=== PATIENT | male | born 1970 | race Caucasian/White ===

== ENCOUNTER 2018-08-10 20:37 | Emergency (ER) | payer MEDICAID ==
[~2018-08-10] VITALS: Ht 172.7 cm; Wt 90.9 kg
[2018-08-10] MEDS ORDERED: ASPIRIN 325 MG EC TABLET PO ONE (21:45)
[2018-08-10 22:01] LABS: BASOPHILS % (AUTO) 1.2 % (0.0-2.0); EOSINOPHILS % (AUTO) 3.3 % (1.0-6.0); HEMATOCRIT 43.2 % (41-53); HEMOGLOBIN 15.1 g/dL (13.5-17.5); LYMPHOCYTES # (AUTO) 1.3 K/uL (1.0-4.8); LYMPHOCYTES % (AUTO) 25.7 % (22.0-44.0); MEAN CORPUSCULAR HEMOGLOBIN 33.1 pg (26.0-34.0); MEAN CORPUSCULAR HGB CONC 34.9 G/dL (31.0-37.0); MEAN CORPUSCULAR VOLUME 95 fL (80-100); MONOCYTES # (AUTO) 0.8 K/uL (0.1-1.0); NEUTROPHILS # (AUTO) 2.8 K/uL (1.8-7.7); NEUTROPHILS % (AUTO) 54.8 % (40.0-70.0); PLATELET COUNT (AUTO) 241 K/uL (150-450); RED BLOOD CELL COUNT(AUTO) 4.55 MIL/uL (4.50-5.90); RED CELL DISTRIBUTION WIDTH 13.4 % (11.5-14.5)
[2018-08-10 22:14] LABS: ANION GAP 14 mmol/L (8-16); CALCIUM, TOTAL 8.6 mg/dL (8.8-10.5); CARBON DIOXIDE 22 mmol/L (22-29); CHLORIDE 104 mmol/L (98-107); CREATININE 1.19 mg/dL (0.60-1.30); GLOMERULAR FILTR. RATE CALC > 60 mL/min (>60); GLUCOSE,RANDOM 124 mg/dL (70-110); POTASSIUM 3.6 mmol/L (3.5-5.1); SODIUM SERUM 140 mmol/L (136-145); UREA NITROGEN, BLOOD 12 mg/dL (7-18)
[2018-08-10 22:24] LABS: B-TYPE NATRIURETIC PEPTIDE < 5 pg/mL (0-100)
[2018-08-10 22:38] LABS: ALANINE AMINOTRANSFERASE 86 U/L (12-78); ALBUMIN 3.7 g/dL (3.4-5.0); ALKALINE PHOSPHATASE 81 U/L (46-116); ASPARTATE AMINOTRANSFERASE 61 U/L (15-37); BILIRUBIN,TOTAL 0.4 mg/dL (0.1-1.0); CREATINE KINASE, TOTAL ONLY 167 U/L (39-308); TOTAL PROTEIN, SERUM 7.3 g/dL (6.4-8.2)
[2018-08-10 22:54] LABS: AMPHET/METH SCREEN,URINE NEGATIVE (NEGATIVE); BARBITURATE SCREEN, URINE NEGATIVE (NEGATIVE); BENZODIAZEPINES SCREEN,URINE NEGATIVE (NEGATIVE); CANNABINOID SCREEN,URINE NEGATIVE (NEGATIVE); COCAINE SCREEN,URINE NEGATIVE (NEGATIVE); METHADONE SCREEN, URINE NEGATIVE (NEGATIVE); OPIATE SCREEN,URINE NEGATIVE (NEGATIVE)
[2018-08-10 23:01] LABS: PHENCYCLIDINE SCREEN,URINE NEGATIVE (NEGATIVE)
[2018-08-10 23:09] LABS: APPEARANCE,URINE CLEAR (CLEAR); BILIRUBIN,URINE NEGATIVE (NEGATIVE); GLUCOSE, URINE (UA) NEGATIVE (NEGATIVE); KETONES,URINE NEGATIVE (NEGATIVE); LEUKOCYTE ESTERASE ,URINE NEGATIVE (NEGATIVE); NITRATE,URINE NEGATIVE (NEGATIVE); OCCULT BLOOD,URINE NEGATIVE (NEGATIVE); PH,URINE 5.5 (5.0-8.0); PROTEIN,URINE NEGATIVE (NEGATIVE); UROBILINOGEN,URINE 0.2 mg/dL (<=1.0)
[2018-08-11] MEDS ORDERED: PROPRANOLOL HCL 10 MG TABLET PO ONE (01:30)
[2018-08-11] MEDS ORDERED: HydrOXYzine HCL 50 MG TABLET PO ONE (01:30)
[2018-08-11 02:13] VITALS: BP 161/94
== END 2018-08-11 03:05 | disposition home or self-care (01) ==
LOC: EMS 20:38
DX: I82.611 Acute embolism and thrombosis of superficial veins of right upper extremity (principal); I80.8 Phlebitis and thrombophlebitis of other sites; F22 Delusional disorders; F41.9 Anxiety disorder, unspecified; F10.10 Alcohol abuse, uncomplicated; I10 Essential (primary) hypertension; F17.210 Nicotine dependence, cigarettes, uncomplicated; Z59.0 Homelessness; Y90.9 Presence of alcohol in blood, level not specified
CPT/HCPCS: 93005; 93971; 99406

== ENCOUNTER 2018-08-17 22:43 | Emergency (ER) | payer MEDICAID ==
[~2018-08-17] VITALS: Ht 172.7 cm; Wt 90.9 kg
[2018-08-18 00:01] LABS: AMPHET/METH SCREEN,URINE POSITIVE (NEGATIVE); BARBITURATE SCREEN, URINE NEGATIVE (NEGATIVE); BENZODIAZEPINES SCREEN,URINE NEGATIVE (NEGATIVE); CANNABINOID SCREEN,URINE NEGATIVE (NEGATIVE); COCAINE SCREEN,URINE NEGATIVE (NEGATIVE); METHADONE SCREEN, URINE NEGATIVE (NEGATIVE); OPIATE SCREEN,URINE NEGATIVE (NEGATIVE)
[2018-08-18 00:04] LABS: PHENCYCLIDINE SCREEN,URINE NEGATIVE (NEGATIVE)
[2018-08-18 01:15] VITALS: BP 164/108
[2018-08-18] MEDS ORDERED: LORazepam 1 MG TABLET PO ONE (01:45)
== END 2018-08-18 01:55 | disposition home or self-care (01) ==
LOC: EDUNIT# 22:43 → EMS 22:44
DX: F41.9 Anxiety disorder, unspecified (principal); F15.10 Other stimulant abuse, uncomplicated; I10 Essential (primary) hypertension; J44.9 Chronic obstructive pulmonary disease, unspecified; F10.20 Alcohol dependence, uncomplicated; F20.9 Schizophrenia, unspecified; F17.210 Nicotine dependence, cigarettes, uncomplicated; Z86.73 Personal history of transient ischemic attack (TIA), and cerebral infarction without residual deficits
CPT/HCPCS: 36415; 80307; 93005; 99284; G0480

== ENCOUNTER 2018-08-18 03:51 | Emergency (ER) | payer MEDICAID ==
[~2018-08-18] VITALS: Ht 170.2 cm; Wt 90.9 kg
[2018-08-18 06:43] VITALS: BP 139/78
== END 2018-08-18 07:33 | disposition left against medical advice (07) ==
LOC: EMS 03:52
DX: F41.9 Anxiety disorder, unspecified (principal); Z53.21 Procedure and treatment not carried out due to patient leaving prior to being seen by health care provider

== ENCOUNTER 2018-10-12 16:27 | Emergency (ER) | payer MEDICAID ==
[~2018-10-12] VITALS: Ht 167.6 cm; Wt 72.7 kg
[2018-10-12] MEDS ORDERED: LORazepam 2 MG TABLET PO ONE (17:45)
[2018-10-12] MEDS ORDERED: LISINOPRIL 10 MG TABLET PO ONE (17:45)
[2018-10-12 17:58] LABS: BASOPHILS % (AUTO) 0.5 % (0.0-2.0); EOSINOPHILS % (AUTO) 0.3 % (1.0-6.0); HEMATOCRIT 47.6 % (41-53); HEMOGLOBIN 16.4 g/dL (13.5-17.5); LYMPHOCYTES # (AUTO) 0.9 K/uL (1.0-4.8); LYMPHOCYTES % (AUTO) 12.4 % (22.0-44.0); MEAN CORPUSCULAR HGB CONC 34.4 G/dL (31.0-37.0); MEAN CORPUSCULAR VOLUME 99 fL (80-100); MONOCYTES # (AUTO) 1.3 K/uL (0.1-1.0); MONOCYTES % (AUTO) 18.2 % (2.0-9.0); NEUTROPHILS # (AUTO) 4.8 K/uL (1.8-7.7); NEUTROPHILS % (AUTO) 68.6 % (40.0-70.0); PLATELET COUNT (AUTO) 182 K/uL (150-450); RED BLOOD CELL COUNT(AUTO) 4.81 MIL/uL (4.50-5.90); RED CELL DISTRIBUTION WIDTH 12.8 % (11.5-14.5)
[2018-10-12 18:09] LABS: ANION GAP 10 mmol/L (8-16); CALCIUM, TOTAL 10.5 mg/dL (8.8-10.5); CARBON DIOXIDE 27 mmol/L (22-29); CHLORIDE 98 mmol/L (98-107); CREATININE 1.16 mg/dL (0.60-1.30); GLOMERULAR FILTR. RATE CALC > 60 mL/min (>60); GLUCOSE,RANDOM 98 mg/dL (70-110); SODIUM SERUM 135 mmol/L (136-145); UREA NITROGEN, BLOOD 9 mg/dL (7-18)
[2018-10-12 18:15] LABS: ALANINE AMINOTRANSFERASE 339 U/L (12-78); ALBUMIN 4.3 g/dL (3.4-5.0); ALKALINE PHOSPHATASE 98 U/L (46-116); ASPARTATE AMINOTRANSFERASE 319 U/L (15-37); BILIRUBIN,TOTAL 1.1 mg/dL (0.1-1.0); TOTAL PROTEIN, SERUM 8.4 g/dL (6.4-8.2)
[2018-10-12 18:42] LABS: APPEARANCE,URINE CLEAR (CLEAR); BILIRUBIN,URINE NEGATIVE (NEGATIVE); GLUCOSE, URINE (UA) NEGATIVE (NEGATIVE); KETONES,URINE TRACE mg/dL (NEGATIVE); LEUKOCYTE ESTERASE ,URINE NEGATIVE (NEGATIVE); NITRATE,URINE NEGATIVE (NEGATIVE); OCCULT BLOOD,URINE NEGATIVE (NEGATIVE); PH,URINE 7.5 (5.0-8.0); PROTEIN,URINE NEGATIVE (NEGATIVE); UROBILINOGEN,URINE 0.2 mg/dL (<=1.0)
[2018-10-12 18:46] LABS: AMPHET/METH SCREEN,URINE POSITIVE (NEGATIVE); BARBITURATE SCREEN, URINE NEGATIVE (NEGATIVE); BENZODIAZEPINES SCREEN,URINE NEGATIVE (NEGATIVE); CANNABINOID SCREEN,URINE NEGATIVE (NEGATIVE); COCAINE SCREEN,URINE NEGATIVE (NEGATIVE); METHADONE SCREEN, URINE NEGATIVE (NEGATIVE); OPIATE SCREEN,URINE NEGATIVE (NEGATIVE)
[2018-10-12 18:47] LABS: PHENCYCLIDINE SCREEN,URINE NEGATIVE (NEGATIVE)
[2018-10-12 19:38] VITALS: BP 150/96
[2018-10-12] MEDS ORDERED: LORazepam 1 MG TABLET PO ONE (19:45)
== END 2018-10-12 20:36 | disposition home or self-care (01) ==
LOC: EMS 16:29
DX: F41.9 Anxiety disorder, unspecified (principal); I10 Essential (primary) hypertension; K70.30 Alcoholic cirrhosis of liver without ascites; F15.10 Other stimulant abuse, uncomplicated; F17.210 Nicotine dependence, cigarettes, uncomplicated; F20.9 Schizophrenia, unspecified; J44.9 Chronic obstructive pulmonary disease, unspecified; Z86.73 Personal history of transient ischemic attack (TIA), and cerebral infarction without residual deficits; Z79.899 Other long term (current) drug therapy
CPT/HCPCS: 36415; 80053; 80307; 81003; 85025; 99284; 99406; G0480

== ENCOUNTER 2023-07-22 01:18 | Emergency (ER) | payer MEDICAID, OTHER ==
[~2023-07-22] VITALS: Ht 170.2 cm; Wt 77.3 kg
[2023-07-22 01:41] VITALS: TEMP 98.6
[2023-07-22 06:00] VITALS: BP 169/96; PULSE 85; RESP 16
== END 2023-07-22 07:07 | disposition home or self-care (01) ==
LOC: EMS 01:18
DX: F10.229 Alcohol dependence with intoxication, unspecified (principal); J44.9 Chronic obstructive pulmonary disease, unspecified; I10 Essential (primary) hypertension; F20.9 Schizophrenia, unspecified; F17.210 Nicotine dependence, cigarettes, uncomplicated; F15.90 Other stimulant use, unspecified, uncomplicated; Y90.9 Presence of alcohol in blood, level not specified
CPT/HCPCS: 99283; Z7502

== ENCOUNTER 2024-01-20 21:24 | Emergency (ER) | payer OTHER ==
[~2024-01-20] VITALS: Ht 170.2 cm; Wt 80.9 kg
[2024-01-20 21:49] LABS: BASOPHILS % (AUTO) 1.2 % (0.0-2.0); EOSINOPHILS % (AUTO) 1.5 % (1.0-6.0); HEMATOCRIT 40.5 % (41-53); HEMOGLOBIN 13.5 g/dL (13.5-17.5); LYMPHOCYTES # (AUTO) 1.3 K/uL (1.0-4.8); LYMPHOCYTES % (AUTO) 30.2 % (22.0-44.0); MEAN CORPUSCULAR HEMOGLOBIN 33.3 pg (26.0-34.0); MEAN CORPUSCULAR HGB CONC 33.3 G/dL (31.0-37.0); MEAN CORPUSCULAR VOLUME 100 fL (80-100); MONOCYTES # (AUTO) 0.5 K/uL (0.1-1.0); MONOCYTES % (AUTO) 11.8 % (2.0-9.0); NEUTROPHILS # (AUTO) 2.3 K/uL (1.8-7.7); NEUTROPHILS % (AUTO) 55.3 % (40.0-70.0); PLATELET COUNT (AUTO) 85 K/uL (150-450); RED BLOOD CELL COUNT(AUTO) 4.05 MIL/uL (4.50-5.90); RED CELL DISTRIBUTION WIDTH 13.9 % (11.5-14.5); WHITE BLOOD COUNT (AUTO) 4.2 K/uL (4.5-11.0)
[2024-01-20 21:57] LABS: ANION GAP 11 mmol/L (8-16); CALCIUM, TOTAL 9.4 mg/dL (8.8-10.5); CARBON DIOXIDE 27 mmol/L (22-29); CHLORIDE 101 mmol/L (98-107); CREATININE 0.77 mg/dL (0.60-1.30); GLOMERULAR FILTR. RATE CALC > 60 mL/min (>60); GLUCOSE,RANDOM 94 mg/dL (70-110); POTASSIUM 3.6 mmol/L (3.5-5.1); SODIUM SERUM 139 mmol/L (136-145); UREA NITROGEN, BLOOD 9 mg/dL (7-18)
[2024-01-20 22:09] LABS: ALCOHOL, BLOOD (SERUM) 354 mg/dL (0-10); RBC MORPHOLOGY COMMENT ABNORMAL RBC MORPH
[2024-01-21 03:23] VITALS: BP 159/72; PULSE 88; RESP 16; TEMP 98.6; O2SAT 100
== END 2024-01-21 04:34 | disposition home or self-care (01) ==
LOC: EMS 21:24
DX: F10.229 Alcohol dependence with intoxication, unspecified (principal); J44.9 Chronic obstructive pulmonary disease, unspecified; I10 Essential (primary) hypertension; F20.9 Schizophrenia, unspecified; F15.90 Other stimulant use, unspecified, uncomplicated; F17.210 Nicotine dependence, cigarettes, uncomplicated; Y90.9 Presence of alcohol in blood, level not specified
CPT/HCPCS: 99284; 80048; 85025; 36415; 70450; G0480

== ENCOUNTER 2024-10-01 20:42 | Emergency (ER) | payer BC, OTHER ==
[~2024-10-01] VITALS: Ht 170.2 cm; Wt 90.9 kg
[2024-10-01 20:49] VITALS: TEMP 97.9
[2024-10-01] MEDS: ACETAMINOPHEN 500 MG TABLET PO ONE (23:15)
[2024-10-01] MEDS: ONDANSETRON 4 MG TABLET PO ONE (23:15)
[2024-10-02 06:14] VITALS: BP 135/66; PULSE 80; RESP 16; O2SAT 100
== END 2024-10-02 06:15 | disposition home or self-care (01) ==
LOC: EMS 20:42
DX: F10.129 Alcohol abuse with intoxication, unspecified (principal); J44.9 Chronic obstructive pulmonary disease, unspecified; I10 Essential (primary) hypertension; F20.9 Schizophrenia, unspecified; F17.210 Nicotine dependence, cigarettes, uncomplicated; F15.90 Other stimulant use, unspecified, uncomplicated; Z86.73 Personal history of transient ischemic attack (TIA), and cerebral infarction without residual deficits; Y90.9 Presence of alcohol in blood, level not specified
CPT/HCPCS: 99283; Q0162